=== PATIENT | male | born 1940 | race Caucasian/White ===

== ENCOUNTER 2022-10-06 10:48 | Emergency (ER) | payer MEDICARE, BC ==
[~2022-10-06] VITALS: Ht 175.3 cm; Wt 82.1 kg
[~2022-10-06 10:48] MED LIST: AMIT50 PO; ASPI81EC PO; ATEN25 PO; ATOR80 PO; Aspir-Low81 MG PO; CHOL10002 PO; CLOP75 PO; COMBIVENT RESPIM4 GM IH; Calcium 600-D1 EACH PO; Coenzyme Q10200 M2 PO; DIPH50 PO; DOCU100 PO; DOXA4 PO; DOXE50 PO; EPIN.3I IM; FAMO20 PO; FLURBIPROFEN 100 MG PO; FURO20 PO; FURO40 PO; HYDCHL25 PO; HYDR1TAB94 PO; ISOMON60ER PO; KLOR-CON SPRINK8 MEQ PO; LAXA CLEAR1530 GM PO; LISI20 PO; METF500 PO; METO25ER PO; MULT50FEL PO; NIFE30ER PO; OXYACE5T PO; PANT40 PO; PRED20 PO; TOCO400 PO; VITAMIN D-3; [UNRECOGNIZED DRUG - OTHER] PO
[2022-10-06 11:12] LABS: BASOPHILS ABSOLUTE AUTO 0.05 K/mm3 (0.00-0.23); BASOPHILS PERCENT AUTO 1 % (0-2); EOSINOPHILS ABSOLUTE AUTO 0.35 K/mm3 (0.00-0.68); EOSINOPHILS PERCENT AUTO 4 % (0-6); Hematocrit 40.9 % (37.0-53.0); IMMATURE GRAN ABSOLUTE AUTO 0.02 K/mm3 (0.00-0.10); IMMATURE GRAN PERCENT AUTO 0 % (0-1); LYMPHOCYTES ABSOLUTE AUTO 2.85 K/mm3 (0.84-5.20); LYMPHOCYTES PERCENT AUTO 34 % (21-46); MONOCYTES ABSOLUTE AUTO 0.58 K/mm3 (0.16-1.47); MONOCYTES PERCENT AUTO 7 % (4-13); Mean Corpuscular HGB 31.2 pg (26.0-34.0); Mean Corpuscular HGB Conc 34.2 g/dL (31.5-36.5); Mean Corpuscular Volume 91 fL (80-100); Mean Platelet Volume 10.5 fL (9.1-12.4); NEUTROPHILS ABSOLUTE AUTO 4.52 K/mm3 (1.96-9.15); NEUTROPHILS PERCENT AUTO 54 % (41-73); Platelet Count 220 K/mm3 (150-400); RDW Coefficient Variation 12.3 % (11.7-14.2); RDW Standard Deviation 41.1 fL (35.1-46.3); Red Blood Cell Count 4.49 M/mm3 (4.30-5.90); White Blood Cell Count 8.37 K/mm3 (4.00-11.30)
[2022-10-06 11:55] LABS: Albumin, Blood 3.6 g/dL (3.4-5.0); Albumin/Globulin Ratio 0.9 (0.8-1.8); Bilirubin, Total 0.6 mg/dL (0.1-1.0); Bun/Creatinine Ratio 20.2 (12.0-20.0); Calcium, Blood 9.1 mg/dL (8.5-10.1); Creatinine, Blood 1.09 mg/dL (0.60-1.20); Globulin, Blood 3.8 g/dL (2.2-4.0); Potassium, Blood 4.3 mmol/L (3.5-5.5); Total Protein, Blood 7.4 g/dL (6.4-8.2)
== END 2022-10-06 13:55 | disposition home or self-care (01) ==
LOC: ER 10:48
PROVIDERS: Physician Assistant
DX: G45.3 Amaurosis fugax (principal); Z91.038 Other insect allergy status; Z79.899 Other long term (current) drug therapy; Z79.82 Long term (current) use of aspirin; I25.10 Atherosclerotic heart disease of native coronary artery without angina pectoris; J44.9 Chronic obstructive pulmonary disease, unspecified; E11.9 Type 2 diabetes mellitus without complications; I12.9 Hypertensive chronic kidney disease with stage 1 through stage 4 chronic kidney disease, or unspecified chronic kidney disease; E11.22 Type 2 diabetes mellitus with diabetic chronic kidney disease; N18.9 Chronic kidney disease, unspecified; Z87.891 Personal history of nicotine dependence
CPT/HCPCS: 36415; 70450; 80053; 85025; 93005; 93010; 93880

== ENCOUNTER → 2023-02-05 | Outpatient (CLI) | payer MEDICARE, BC ==
[2023-02-05 18:25] LABS: Albumin, Blood 3.5 g/dL (3.4-5.0); Albumin/Globulin Ratio 0.9 (0.8-1.8); Bilirubin, Total 0.4 mg/dL (0.1-1.0); Bun/Creatinine Ratio 22.7 (12.0-20.0); Calcium, Blood 9.2 mg/dL (8.5-10.1); Creatinine, Blood 1.19 mg/dL (0.60-1.20); Globulin, Blood 4.1 g/dL (2.2-4.0); Potassium, Blood 4.5 mmol/L (3.5-5.5); Thyroid Stimulating Hormone 3.19 uIU/mL (0.360-4.800); Total Protein, Blood 7.6 g/dL (6.4-8.2)
== END ==
LOC: LAB 14:52 → LAB SHORT 14:52
PROVIDERS: Internal Medicine Cardiovascular Disease
DX: R06.02 Shortness of breath (principal); I10 Essential (primary) hypertension; R07.9 Chest pain, unspecified
CPT/HCPCS: 36415; 80053; 83735; 83880; 84443

== ENCOUNTER 2024-12-07 05:57 | Day surgery (SDC) | payer MEDICARE, BC ==
[~2024-12-07] VITALS: Ht 167.6 cm; Wt 74.7 kg
[2024-12-07] VITALS (20 sets, daily range): BP systolic 115–163; BP diastolic 44–97
[~2024-12-07 05:57] MED LIST changes: +CELE100 PO; +DULO30 PO; +ELIQUIS5 M2 PO; +ERGO50000 PO; +FISH OIL 1,0001 EA10 PO; +FISH OIL PO; +GABA300 PO; +MAGNESIUM OXID500 MG PO; +OMEP20ER PO; +TOCO1000 PO; +TORS10 PO; +VITAMIN D325 MC3 PO
[2024-12-07] MEDS ORDERED: CeFAZolin Sodium 2,000 MG in NS 100 ML IV SCH ×2 (06:20→16:00)
[2024-12-07] MEDS ORDERED: Chlorhexidine Mouth Care 15 ML UDC MT SCH (06:20)
[2024-12-07] MEDS ORDERED: Ropivacaine 0.5% HCl/Pf 123.125 MG,EPINEPHrine HCL 0.25 MG,Ketorolac Tromethamine 15 MG... INFIL SCH (06:20)
[2024-12-07] MEDS ORDERED: Acetaminophen 500 MG Tab PO SCH ×2 (06:20→16:00)
[2024-12-07] MEDS ORDERED: OxyCODONE HCL 10 MG TABCR PO SCH (06:20)
[2024-12-07] MEDS ORDERED: Lactated Ringer's 1,000 ML IV SCH ×2 (06:20→09:35)
[2024-12-07] MEDS ORDERED: Tranexamic Acid 100 ML IV SCH (06:33)
[2024-12-07] MEDS ORDERED: propofoL 50 ML IV ONE (07:11)
[2024-12-07] MEDS ORDERED: FentaNYL Citrate 50 MCG/ML 2 ML Injection ONE (07:29)
[2024-12-07] MEDS ORDERED: Phenylephrine HCl 100 MCG/ML-NS 10MLSYR (1MG/10ML) ONE (08:00)
[2024-12-07] MEDS ORDERED: ePHEDrine Sulfate 50 MG/ML 1ML Injection ONE (08:31)
[2024-12-07] MEDS ORDERED: propofoL 20 ML IV ONE (08:51)
[2024-12-07] MEDS ORDERED: Ondansetron HCl 2 MG / ML 2ML Vial IV PRN ×2 (09:05→09:45)
[2024-12-07] MEDS ORDERED: Magnesium Hydroxide Conc 10 ML UDC PO PRN (09:35)
[2024-12-07] MEDS ORDERED: Metoclopramide HCl 5MG / ML 2ML Vial IV PRN (09:40)
[2024-12-07] MEDS ORDERED: FLU VACC TS2024-25(6MOS UP)/PF 45 MCG/0.5 ML SYRINGE IM SCH (09:40)
[2024-12-07] MEDS ORDERED: Promethazine HCl 25 MG Tab PO PRN (09:40)
[2024-12-07] MEDS ORDERED: DiphenhydrAMINE HCL 25 MG Cap PO PRN (09:40)
[2024-12-07] MEDS ORDERED: HYDROmorphone HCl/Pf 1MG SYR IV PRN (09:40)
[2024-12-07] MEDS ORDERED: Prochlorperazine Edisylate 10 mg Vial IV PRN (09:45)
[2024-12-07] MEDS ORDERED: Bisacodyl 10 MG Supp PR PRN (09:45)
[2024-12-07] MEDS ORDERED: OxyCODONE HCL 5 MG TAB PO PRN ×2 (09:45)
[2024-12-07] MEDS ORDERED: Insulin Regular 100 UNIT/ML 10ML Vial SC SCH (11:30)
[2024-12-07] MEDS ORDERED: Ketorolac Tromethamine 15mg Vial IV SCH (12:00)
--- NOTE | 2024-12-07 13:32 | NUR ---
POST-OP ARRIVAL TO ROOM 213 @1115. VITALS STABLE, DENIES PAIN, REPORTS SENSATION TO BILJAMIE LE. ICE IN PLACE, AQUACEL TO R HIP C/D/I. SCDS, AND PIA HOSE IN PLACE. CALL LIGHT IN REACH
--- NOTE | 2024-12-07 16:43 | NUR ---
SHIFT SUMMARY POD0 R ARAM DE LUNA IS C/D/I. UP WITH THERAPY IN CHAIR 2 PERSON FOR SAFETY. PATIENT DID GET NAUSEATED AND DIAPHORETIC, STATES HE FELT "WHOOZY". IN CHAIR LEGS ELEVATED. IV FLUIDS RUNNIN AT 70/HR. AWAITING FIRST POST-OP VOID. BLADDER SCAN 265 @1630. DENIES NEED TO VOID. TOLERATES LIQUID INTAKE AND TAKES PILLS WHOLE WITH WATER. 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 MEDICATED FOR PAIN WITH 5MG OXY TOLERATED WELL. VSS, SBP IN THE 140'S/70S. HR MAINTAIN IN 70S. AFTER SEVERAL MINUTES PATIENT REPORTS FEELING BETTER. CBG IN 130S. DENIES N/T. CALL LIGHT IN REACH NO NEEDS AT THIS TIME.
[2024-12-07] MEDS ORDERED: MetFORMIN HCL 850 MG TAB PO SCH (17:00)
[2024-12-07] MEDS ORDERED: Gabapentin 300 MG Cap PO SCH (21:00)
[2024-12-07] MEDS ORDERED: Atorvastatin 40 MG Tab PO SCH (21:00)
[2024-12-07] MEDS ORDERED: Docusate Sodium 100 MG Cap PO SCH (21:00)
[2024-12-08 03:05] VITALS: BP 115/54
[2024-12-08 03:14] LABS: BASOPHILS ABSOLUTE AUTO 0.01 K/mm3 (0.00-0.23); BASOPHILS PERCENT AUTO 0 % (0-2); EOSINOPHILS ABSOLUTE AUTO 0.01 K/mm3 (0.00-0.68); EOSINOPHILS PERCENT AUTO 0 % (0-6); Hematocrit 26.8 % (37.0-53.0); Hemoglobin 8.9 g/dL (13.5-17.5); IMMATURE GRAN ABSOLUTE AUTO 0.05 K/mm3 (0.00-0.10); IMMATURE GRAN PERCENT AUTO 0 % (0-1); LYMPHOCYTES ABSOLUTE AUTO 1.77 K/mm3 (0.84-5.20); LYMPHOCYTES PERCENT AUTO 13 % (21-46); MONOCYTES ABSOLUTE AUTO 1.29 K/mm3 (0.16-1.47); MONOCYTES PERCENT AUTO 10 % (4-13); Mean Corpuscular HGB 30.7 pg (26.0-34.0); Mean Corpuscular HGB Conc 33.2 g/dL (31.5-36.5); Mean Corpuscular Volume 92 fL (80-100); Mean Platelet Volume 10.9 fL (9.1-12.4); NEUTROPHILS ABSOLUTE AUTO 10.27 K/mm3 (1.96-9.15); NEUTROPHILS PERCENT AUTO 77 % (41-73); Platelet Count 157 K/mm3 (150-400); RDW Coefficient Variation 12.6 % (11.7-14.2); RDW Standard Deviation 42.4 fL (35.1-46.3)
[2024-12-08 03:36] LABS: Bun/Creatinine Ratio 21.5 (12.0-20.0); Calcium, Blood 8.4 mg/dL (8.5-10.1); Creatinine, Blood 1.07 mg/dL (0.60-1.20); Potassium, Blood 5.2 mmol/L (3.5-5.5)
--- NOTE | 2024-12-08 06:28 | NUR ---
SHIFT SUMMARY POD 1 R ANNAMARIE. NO ACUTE CHANGES OVERNIGHT. VSS. TOLERATING ORALS. VOIDING. AMBULATES USINF FWW c GB & SBA. AQUACEL C/D/I. PT IS DRESSED, RESTING IN CHAIR. PT REPORTS PAIN TOLERABLE, MEDICATED PER EMAR, POLAR PACK IN USE. ANTICIPATED DISCHARGE LATER TODAY. CALL LIGHT IN REACH, WILL REPORT TO DAY RN.
[2024-12-08 07:00] VITALS: BP 121/56
[2024-12-08] MEDS ORDERED: CELE100 PO (07:57)
[2024-12-08] MEDS ORDERED: Torsemide 10 MG TAB PO SCH (09:00)
[2024-12-08] MEDS ORDERED: Doxazosin Mesylate 2 MG Tab PO SCH (09:00)
[2024-12-08] MEDS ORDERED: Cholecalciferol 1000 Unit Tablet (=25MCG) PO SCH (09:00)
[2024-12-08] MEDS ORDERED: Vitamin E 400 Intn'l Units Cap PO SCH (09:00)
[2024-12-08] MEDS ORDERED: Apixaban 5 MG Tab PO SCH (09:00)
[2024-12-08] MEDS ORDERED: DULoxetine HCL 30 MG Cap DR PO SCH (09:00)
--- NOTE | 2024-12-08 13:58 | NUR ---
DISCHARGE ALL INTRUCTIONS READ AND SIGNED, WHEEL CHAIR FROM [facility] DELIVERED. IV TAKEN OUT. PATIENT WHEELED OUT TO PRIVATE CAR.
[2024-12-09] MEDS ORDERED: Ergocalciferol 50000 Intn'l Units PO SCH (09:00)
== END 2024-12-08 13:45 | disposition home or self-care (01) ==
LOC: ORSCMMR 05:57 → SURS 10:16 → MEDS 13:57 → SURS 13:59 → ORSCMMR 12-08 13:45 → ORD 12-14 09:15
PROVIDERS: Orthopaedic Surgery
PROC: 0SR90JZ Replacement of Right Hip Joint with Synthetic Substitute, Open Approach (ICD-10-PCS; principal; 2024-12-07 07:30)
DX: M16.11 Unilateral primary osteoarthritis, right hip (principal); E11.9 Type 2 diabetes mellitus without complications; I25.2 Old myocardial infarction; I50.9 Heart failure, unspecified; Z79.899 Other long term (current) drug therapy; Z79.01 Long term (current) use of anticoagulants; Z79.84 Long term (current) use of oral hypoglycemic drugs
CPT/HCPCS: 36415; 72170; 80048; 82947; 85025; 97110; 97112; 97116; 97162; 97530; A9270; C1776; J0171; J0690; J0735; J1815; J1885; J2371; J2405; J2704; J2795; J3010; J7120